=== PATIENT | male | born 1955 | race Caucasian/White ===

== ENCOUNTER 2017-06-30 06:56 | Day surgery (SDC) | payer MEDICAID ==
[~2017-06-30] VITALS: Ht 177.8 cm; Wt 109.1 kg
[~2017-06-30 06:56] MED LIST: CEPH500 PO; FURO20 PO; LEVO137T24 PO; LOSA50TA37 PO
[2017-06-30] MEDS ORDERED: BENZOCAINE 20% 50 MCG/SPRAY 57 GM TP ONE (06:57)
[2017-06-30] MEDS ORDERED: LIDOCAINE HCL 2% 30 ML JELLY TP ONE (06:57)
[2017-06-30] MEDS ORDERED: LIDOCAINE HCL 4% 50 ML SOLUTION TP ONE (06:57)
[2017-06-30] MEDS ORDERED: SODIUM CHLORIDE 0.9% 1,000 ML IV ONE ×2 (07:00→07:08)
[2017-06-30] MEDS ORDERED: MIDAZOLAM HCL 2 MG/2 ML VIAL ONE (07:48)
[2017-06-30] MEDS ORDERED: MIDAZOLAM HCL 5 MG/ML VIAL ONE (07:48)
[2017-06-30] MEDS ORDERED: MethylPREDNISolone SOD SUCC 125 MG/2 ML VIAL IVP ONE (09:15)
[2017-06-30] MEDS ORDERED: MethylPREDNISolone SOD SUCC 125 MG/2 ML VIAL ONE (09:47)
[2017-06-30] MEDS ORDERED: OXYGEN THERAPY IH SCH (20:00)
== END 2017-06-30 10:40 | disposition home or self-care (01) ==
LOC: SURGERY 06:56
PROVIDERS: ATTEND Internal Medicine Critical Care Medicine
DX: J38.4 Edema of larynx (principal); B37.0 Candidal stomatitis; J44.9 Chronic obstructive pulmonary disease, unspecified; E03.9 Hypothyroidism, unspecified; M19.032 Primary osteoarthritis, left wrist; M19.031 Primary osteoarthritis, right wrist; F10.21 Alcohol dependence, in remission; F12.21 Cannabis dependence, in remission; F15.21 Other stimulant dependence, in remission; I10 Essential (primary) hypertension; Z98.890 Other specified postprocedural states; Z87.891 Personal history of nicotine dependence; Z79.899 Other long term (current) drug therapy
CPT/HCPCS: 31623; 31624; 71045; 87015; 87070; 87147; 87205; 87220; 88108; 88312; 93005; J2250; J2930; J7030